=== PATIENT | female | born 1970 | race African-American/Black ===

== ENCOUNTER 2023-10-12 13:59 | Emergency (ER) | payer OTHER ==
[~2023-10-12] VITALS: Ht 170.2 cm; Wt 118.0 kg
[2023-10-12 14:02] VITALS: O2SAT 98
[2023-10-12] MEDS ORDERED: ACETAMINOPHEN 325MG TABLET PO ONE (14:15)
[2023-10-12] MEDS ORDERED: LIDOCAINE 5% PATCH TOP SCH (14:15)
[2023-10-12] MEDS ORDERED: IBUPROFEN 400MG TABLET PO ONE (14:15)
[2023-10-12] MEDS ORDERED: ACETAMINOPHEN 325MG TABLET PO NR (14:30)
[2023-10-12] MEDS ORDERED: IBUPROFEN 400MG TABLET PO NR (14:30)
[2023-10-12] MEDS ORDERED: NAPR-681 MT (16:49)
[2023-10-12] MEDS ORDERED: LIDO700A30 TP (16:49)
[2023-10-12] MEDS ORDERED: METH-653 MT (17:02)
[2023-10-12 17:32] VITALS: BP 115/65; PULSE 85; RESP 17; TEMP 97.8
== END 2023-10-12 17:36 | disposition home or self-care (01) ==
LOC: ER 14:28
DX: M54.2 Cervicalgia (principal); E11.9 Type 2 diabetes mellitus without complications; E78.00 Pure hypercholesterolemia, unspecified; I10 Essential (primary) hypertension; F19.90 Other psychoactive substance use, unspecified, uncomplicated; V98.8XXA Other specified transport accidents, initial encounter; Y93.89 Activity, other specified; Y92.89 Other specified places as the place of occurrence of the external cause; Y99.8 Other external cause status
CPT/HCPCS: 99284